=== PATIENT | female | born 1960 | race Two or more races ===

== ENCOUNTER → 2018-12-17 | Outpatient (CLI) | payer OTHER | END | disposition home or self-care (01) | LOC: MAMO-SONO 07:36 | DX: D48.61 Neoplasm of uncertain behavior of right breast (principal) ==

== ENCOUNTER 2019-09-24 14:10 | Outpatient (CLI) | payer OTHER | END 2019-09-24 14:25 | disposition home or self-care (01) | LOC: MAMO-SONO 14:10 | DX: D48.61 Neoplasm of uncertain behavior of right breast (principal); Z12.31 Encounter for screening mammogram for malignant neoplasm of breast ==

== ENCOUNTER 2020-04-14 07:28 | Outpatient (CLI) | payer OTHER | END 2020-04-14 07:44 | disposition home or self-care (01) | LOC: SONOGRAMA 07:28 | PROVIDERS: ATTEND Internal Medicine Gastroenterology | DX: R10.84 Generalized abdominal pain (principal) ==

== ENCOUNTER 2021-06-14 09:54 | Outpatient (CLI) | payer OTHER | END 2021-06-14 10:07 | disposition home or self-care (01) | LOC: MAMO-SONO 09:54 | DX: D48.62 Neoplasm of uncertain behavior of left breast (principal); Z12.31 Encounter for screening mammogram for malignant neoplasm of breast ==